=== PATIENT | female | born 1995 | race American Indian/Alaskan Native ===

== ENCOUNTER 2020-05-17 16:54 | Emergency (ER) | payer MEDICAID ==
[2020-05-17 17:53] LABS: HCG Qualitative,Urine Negative (Negative)
[2020-05-17 18:24] VITALS: BP 144/91
--- NOTE | 2020-05-17 18:26 | Emergency Department Report ---
ED Medical Clearance HPI - General Chief complaint: Medical Clearance Stated complaint: LATE CYCLE Time Seen by Provider: 05/17/20 18:14 Source: patient Mode of arrival: Ambulatory - History of Present Illness Initial comments: 24-year-old morbid obese female presents to the emergency room stating that her period is late. Patient states that she is taken several home test that have been negative. Patient denies any abdominal pain vaginal bleeding vaginal discharge. Home medications: Previous Rx's Medication Instructions Recorded Last Taken Type Hyoscyamine Subl [Levsin Sl] 0.125 mg SL Q4HR PRN #10 tablet 11/30/13 Unknown Rx Promethazine [Phenergan] 25 mg PO Q6H PRN #10 tablet 11/30/13 Unknown Rx Vit-Fe Fumar-FA [ 1 each PO QDAY #30 tablet 01/01/14 Unknown Rx Vitamin] Allergies/Adverse reactions: Allergies Allergy/AdvReac Type Severity Reaction Status Date / Time No Known Allergies Allergy Unverified 11/30/13 21:36 ED Review of Systems ROS: Stated complaint: LATE CYCLE Other details as noted in HPI Comment: All other systems reviewed and negative ED Past Medical Hx - Past Medical History Previous Medical History?: No - Surgical History Past Surgical History?: No - Social History Smoking Status: Never Smoker - Medications Home Medications: Home Medications Medication Instructions Recorded Confirmed Last Taken Type Hyoscyamine Subl [Levsin Sl] 0.125 mg SL Q4HR PRN #10 tablet 11/30/13 Unknown Rx Promethazine [Phenergan] 25 mg PO Q6H PRN #10 tablet 11/30/13 Unknown Rx Vit-Fe Fumar-FA [ 1 each PO QDAY #30 tablet 01/01/14 Unknown Rx Vitamin] ED Physical Exam - General Limitations: No Limitations General appearance: alert, in no apparent distress - Head Head exam: Present: atraumatic, normocephalic - ENT ENT exam: Present: mucous membranes moist - Neurological Exam Neurological exam: Present: alert, oriented X3, normal gait - Psychiatric Psychiatric exam: Present: normal affect, normal mood - Skin Skin exam: Present: warm, dry, intact, normal color. Absent: rash ED Course Vital Signs 05/17/20 05/17/20 16:59 17:07 Temperature 98.1 F Pulse Rate 111 H Respiratory 16 Rate Blood Pressure 157/102 O2 Sat by Pulse 99 Oximetry ED Medical Decision Making - Medical Decision Making 24-year-old morbid obese female presents to the emergency room stating that her period is late. Patient states that she is taken several home test that have been negative. Patient denies any abdominal pain vaginal bleeding vaginal discharge. Negative test. Patient is referred to [facility] for amenorrhea. ED Disposition Clinical Impression: Amenorrhea, Severely overweight Disposition: DC- TO HOME OR SELFCARE Is pt being admited?: No Does the pt Need Aspirin: No Condition: Stable Additional Instructions: test is negative. Please follow-up with an [facility] to see why you are having late menstrual cycles. Referrals: [facility] [Provider Group] - 3-5 Days [facility] [Provider Group] - 3-5 Days [facility] [Provider Group] - 3-5 Days
== END 2020-05-17 18:25 | disposition home or self-care (01) ==
LOC: ED 16:54
DX: N91.2 Amenorrhea, unspecified (principal); E66.3 Overweight; Z68.41 Body mass index [BMI] 40.0-44.9, adult; Z79.899 Other long term (current) drug therapy
CPT/HCPCS: 81025